=== PATIENT | female | born 1985 | race Caucasian/White ===

== ENCOUNTER 2018-02-09 03:10 | Emergency (ER) | payer BC ==
[~2018-02-09] VITALS: Ht 172.7 cm; Wt 81.6 kg
[2018-02-09] MEDS ORDERED: IV NS 0.9% 1,000 ML BAG IV ONE (04:00)
[2018-02-09] MEDS ORDERED: ONDANSETRON HCL/PF 4 MG/2 ML VIAL IVP ONE (04:00)
--- NOTE | 2018-02-09 04:09 | NUR ---
BIB [facility] FOR SYNCOPAL EPISODE AT APPROX "0100". PT STATES, "I DIDN'T EAT A PROPER MEAL ALL DAY." PT AA/O X4. NO S/S OF SOB. PAIN TO LEFT LEG AND HEAD FROM GROUND LEVEL FALL. VSS. NAD. SKIN'S PINK, WARM, DRY. AWAITING MD MEYER, ORDERS.
[2018-02-09] MEDS ORDERED: ONDANSETRON HCL/PF 4 MG/2 ML VIAL ONE (04:10)
[2018-02-09 04:36] LABS: BASOPHILS % (AUTO) 0.3 % (0.0-2.0); EOSINOPHILS % (AUTO) 0.4 % (0.0-6.0); HEMATOCRIT 38 % (33-45); HEMOGLOBIN 12.9 g/dL (11.5-14.8); LYMPHOCYTES # (AUTO) 0.8 /CMM (0.8-4.8); LYMPHOCYTES % (AUTO) 8.4 % (20.0-44.0); MEAN CORPUSCULAR HEMOGLOBIN 30 PG (26.0-33.0); MEAN CORPUSCULAR HGB CONC 34 g/dl (31.0-36.0); MEAN CORPUSCULAR VOLUME 90 fL (82-100); MONOCYTES # (AUTO) 0.4 /CMM (0.1-1.30); MONOCYTES % (AUTO) 3.9 % (2.0-12.0); PLATELET COUNT (AUTO) 243 /CMM (150-450); RDW COEFFICIENT OF VARIATION 12.4 (11.5-15.0); RED BLOOD CELL COUNT(AUTO) 4.28 MIL/uL (4.0-5.2); WHITE BLOOD COUNT (AUTO) 9.2 K/uL (4.3-11.0)
[2018-02-09 04:37] LABS: CALCIUM, SERUM 8.9 mg/dL (8.5-10.1); CREATININE 0.7 mg/dL (0.6-1.3); POTASSIUM 3.8 mmol/L (3.5-5.1)
--- NOTE | 2018-02-09 04:49 | NUR ---
AMBULATORY TO BATHROOM WITH STEADY GAIT. NAD
--- NOTE | 2018-02-09 05:22 | NUR ---
Patient discharged to home in stable condition. Written and verbal after care instructions given. Patient verbalizes understanding of instruction. IV removed. Catheter intact and site benign. Pressure and 4x4 applied to site. No bleeding noted. PT AMBULATED WITH STABLE GAIT. INSTRUCTED NOT TO OPERATE HEAVY MACHINERY OR DRIVE.
[2018-02-09 05:24] VITALS: BP 98/70
== END 2018-02-09 05:25 | disposition home or self-care (01) ==
LOC: ER 03:12
DX: S09.8XXA Other specified injuries of head, initial encounter (principal); R55 Syncope and collapse; R19.7 Diarrhea, unspecified; L65.9 Nonscarring hair loss, unspecified; Z88.2 Allergy status to sulfonamides; W18.00XA Striking against unspecified object with subsequent fall, initial encounter; Y93.89 Activity, other specified; Y92.89 Other specified places as the place of occurrence of the external cause; Y99.8 Other external cause status
CPT/HCPCS: 36415; 80048; 84703; 85025; 93005; 96361; 96374; 99285; A4606; J2405; J7030; Z7610

== ENCOUNTER 2024-08-29 04:02 | Emergency (ER) | payer BC ==
[~2024-08-29] VITALS: Ht 172.7 cm; Wt 72.6 kg
[2024-08-29] MEDS: IV NS 0.9% 1,000 ML BAG IV ONE (04:23)
[2024-08-29 04:45] LABS: EOSINOPHILS % (AUTO) 0.9 % (0.0-6.0); HEMATOCRIT 37 % (33-45); HEMOGLOBIN 12.7 g/dL (11.5-14.8); LYMPHOCYTES % (AUTO) 27.5 % (20.0-44.0); MEAN CORPUSCULAR HEMOGLOBIN 31 PG (26.0-33.0); MEAN CORPUSCULAR HGB CONC 34 g/dl (31.0-36.0); MEAN CORPUSCULAR VOLUME 90 fL (82-100); MONOCYTES # (AUTO) 0.3 K/uL (0.1-1.30); NEUTROPHILS # (AUTO) 2.4 K/uL (1.8-8.9); NEUTROPHILS % (AUTO) 61.6 % (43.0-81.0); PLATELET COUNT (AUTO) 175 K/uL (150-450); RED BLOOD CELL COUNT(AUTO) 4.14 MIL/uL (4.0-5.2); RED CELL DISTRIBUTION WIDTH 12.5 % (11.5-15.0); WHITE BLOOD COUNT (AUTO) 3.8 K/uL (4.3-11.0)
[2024-08-29 04:59] LABS: ALANINE AMINOTRANSFERASE 18 U/L (12-78); ALBUMIN 3.2 g/dL (3.4-5.0); ALKALINE PHOSPHATASE 101 U/L (46-116); ASPARTATE AMINOTRANSFERASE 15 U/L (15-37); BILIRUBIN,DIRECT 0.1 mg/dL (0.0-0.2); BILIRUBIN,TOTAL 0.3 mg/dL (0.2-1.0); CALCIUM, SERUM 8.5 mg/dL (8.5-10.1); CARBON DIOXIDE 30 mmol/L (21-32); CHLORIDE 107 mmol/L (98-107); CREATININE 0.8 mg/dL (0.6-1.3); GLUCOSE 97 mg/dL (74-106); POTASSIUM 4.1 mmol/L (3.5-5.1); SODIUM SERUM 141 mmol/L (136-145); TOTAL PROTEIN, SERUM 6.8 g/dL (6.4-8.2); UREA NITROGEN, BLOOD 14 mg/dL (7-18)
[2024-08-29 05:01] LABS: INR 1.08 (0.91-1.10); PARTIAL THROMBOPLASTIN TIME 26.9 SEC (24.3-34.3); PROTHROMBIN TIME 11.4 SECS (9.2-11.1)
[2024-08-29 06:14] LABS: PREGNANCY TEST URINE QUAL NEGATIVE (NEGATIVE)
[2024-08-29 06:28] VITALS: BP 102/66; TEMP 98.4; O2SAT 98
== END 2024-08-29 06:33 | disposition home or self-care (01) ==
LOC: ER 04:03
DX: R55 Syncope and collapse (principal); R11.0 Nausea; M54.2 Cervicalgia; E06.3 Autoimmune thyroiditis; Z88.2 Allergy status to sulfonamides
CPT/HCPCS: 99285; 72125; 96360; 71045; 93005; 70450; 85025; 80048; 80076; 84703; 36415; 84484; 85730; 86850; 82962; J7030